=== PATIENT | male | born 1980 | race Two or more races ===

== ENCOUNTER 2025-04-16 08:44 | Outpatient (OUT) | payer OTHER, SELFPAY ==
--- OUTSIDE RECORDS SUMMARY | 2025-04-11 10:15 | XMS_ITS ---
Author Organization [facility] [place] Address [address] [place] [address] Care Team Providers Care Senior Pharmacy Technician Name Role Phone Vladislav Wells Primary Care Provider Allergies Allergen (clinical drug ingredient) Drug/Non Drug Allergy documented on EMR Reaction Allergy Type Onset Date Status Penicillin Unknown Drug Allergy Active Results Component Value Reference Range Notes UA (Urinalysis, Dipstix only - w/o micro) (Not yet reviewed by provider) Interpretation:Entered in Error Performing Lab: Notes/Report: Entered in Error COLOR yellow Yellow - Capri - CLARITY clear Clear - Clear GLUCOSE - 0 - 133 MG/DL ALBUMIN - NEG - NEG MG/DL BILIRUBIN - NEG - NEG MG/DL SPECIFIC GRAVITY 1.015 1.001 - 1.035 KETONES + NEG - NEG MG/DL BLOOD, UR - PH, UR 5 5 - 9 UROBILNOGEN - 0.2 - 1 MG/DL NITRITE - NEG - NEG ESTERASE (JOON) - NEG - NEG MG/DL Reason For Referral Diagnosis 1 Keratosis (L57.0) Referral Organization [facility] Medicine Referring Provider First Name Vladislav Referring Provider Last Name Priscilla Referring Provider Speciality Family Med richard Referred Provider Gume Sharp Referred Provider Specialty General Surg jody Referral Priority Routine REASON FOR VISIT new patient, has not seen a dr in over ten years, right shoulder pain no injury, pain has lasted over a month and getting worse, patient has concerns about a mole on the right side of his head Medications Medication SIG (Take, Route, Fr equency, Duration) Notes Start Date End Date Status Meloxicam 15 MG 1 tablet Orally Once a day for 30 days 04/11/2025 Active Social History Tobacco Use: Social History Observation Description Date Details (start date - stop date) Current Smoker 06/24/1993 - NA Tobacco Control (Standard) Question Answer Notes Tobacco use: Current smoker When did you start smoking? 06/24/1993 How often do you smoke cigarettes? Every day How many cigarettes a day do you smoke? 11-20 AUDIT-C (Standard) Question Answer Notes Did you have a drink contain ing alcohol in the past year? Yes How often did you have a dri nk containing alcohol in the past year? Never (0 point) How many drinks did you have on a typical day when you were drinking in the past year? 3 or 4 drinks (1 point) How often did you have six o r more drinks on one occasion in the past year? 2 to 3 times per week (3 points) Points 4 Interpretation Positive Problems Problem Type SNOMED Code ICD Code Onset Dates Problem Status W/U Status Risk Notes Problem Well adult (895724292) Well adult (Z00.00) Active confirmed Vital Signs Weight 182.6 lbs 04/11/2025 Height 72 in 04/11/2025 Blood pressure systolic 140 mm Hg 04/11/20 25 Blood pressure diastolic 82 mm Hg 025 BMI 24.76 kg/m2 04/11/2025 Encounters Encounter Location Date Provider Diagnosis [facility] [address] [place] [address] 04/11/2025 Vladislav Wells Well adult Z00.00 ; Keratosis L57.0 and Flank pain R10.9 Assessments Encounter Date Diagnosis (ICD Code) Assessment Notes Treatment Notes Treatment Clinical Notes Section Notes 04/11/2025 Well adult (ICD-10 - Z00.00) 04/11/2025 Keratosis (ICD-10 - L57.0) 04/11/2025 Flank pain (ICD-10 - R10.9) Plan Of Treatment Medication Medication Name Sig Start Date Stop Date Notes Meloxicam 15 MG 1 tablet Orally Once a day for 30 days Pending Test Test Name Order Date HEMOGLOBIN A1C (GLYCO) 04/11/2025 LIPID PANEL (CHOL/TRIG/HDL/LDL) 04/11/20 25 PSA, SCREENING 04/11/2025 CMP (COMP MET KHAN) w/eGFR CKD-EPI 2024 CBC WITH DIFF 04/11/2025 Referrals Referral Date Details 04/11/2025 04/11/2025, Gume Sharp Progress Notes * Jareth UMAÑA CDOB:[birth year] (44 yo M)Acc No.[id number]:04/11/2025 New Patient Patient: Jareth MENDOZA Provider: Angely Wells ([facility])MD :1980 A ge:44 Y S ex:Male Date:04/11/2025 Address:[facility] [place], [id number] Check In:01:59 PM ESTCheck O ut:02:40 PM EST Subjective: * Chief Complaints: * N ew patient, has not seen a dr in over ten years, right shoulder pain no injury, pain has lasted over a month and getting worse, patient has concerns about a mole on the right side of his head * HPI: G eneral: R shoudler pain - no injury - just woke withit - ttong wopr s-e trobuel sleeping - diff keeibgn arem flext - feels better extended - icy-hopt patches help some hx Kidney stone. D epression Screening: PHQ-9 L ittle interest or pleasure in doing things?Not at all F eeling down, depressed, or hopeless N ot at all T rouble falling or staying asleep, or sleeping too much S everal days F eeling tired or having little energy S everal days P oor appetite or overeating N ot at all F eeling bad about yourself or that you are a failure, or have let yourself or your family down N ot at all T rouble concentrating on things, such as reading the newspaper or watching television N ot at all M oving or speaking so slowly that other people could have noticed; or the opposite, being so fidgety or restless that you have been moving around a lot more than usual N ot at all T houghts that you would be better off or of hurting yourself in some way N ot at all T otal Score 2 I nterpretation M inimal Depression * ROS: E ENT: hearing changes d enies. v isual changes d enies.?non-healing mouth sores d enies. s wollen glands or neck lumps d enies. h oarseness d enies. s ore throat d enies. d ifficulty swallowing d enies. n ose bleeds d enies. n regan congestion d enies. e ar ache d enies. e ar discharge?denies. r inging in ears d enies. l ight sensitivity d enies. e ye pain d enies. b lurring d enies. e ye irritation d enies. d ouble vision d enies.?vision loss d enies. G eneral/Constitutional: Sweats: D enies. F atigue d enies. S leep problems d enies. A norexia d enies. M alaise d enies. W eight loss d enies.?Fatigue or Weakness d enies. F ever or Chills d enies. C ardiovascular: Shortness of Breath w/lying flat d enies. L ightheadedness/dizziness d enies. C hest tightness/ heavy pressure d enies. S welling of legs, ankles, or feet d enies. W aking up with shortness of breath d enies. C hest pain denies. P alpitations d enies. W eight gain d enies. R espiratory: Chronic or frequent cough d enies. C oughing up blood?denies. D ifficulty breathing d enies. P roductive cough d enies. S noring?denies. S hortness of breath that awakens from sleep (PND) d enies. C hest pain d enies. S putum production d enies. W heezing d enies. M usculoskeletal: Joint pain d enies. J oint Fluid d enies. B ack pain d enies. K nee pain d enies. N julianne pain d enies. J oint Stiffness d enies. M uscle cramps d enies. W eakness of muscles d enies. A rthritis d enies. M uscle aches d enies. P ain in shoulder(s) d enies. S wollen joints d enies. * Active Problem List Z00.00 Well adult Modified On:04/11/2025W/U Status:confirmed * Medical History: * Surgical History: l eft hand surgery to repair tendons * Hospitalization/Major Diagno stic Procedure: N o Hospitalization History. * Family History: F ather: alive, diagnosed with Unspecified heart disease. M other: alive. B rother(s): alive. S ister(s): alive. S on(s): alive. D aughter(s): alive. P aternal Grandfather: colon cancer, diagnosed with Other malignant neoplasm of unspecified site. M aternal Grandfather: diagnosed with Other malignant neoplasm of unspecified site. 3 brother(s) , 3 sister(s) . 1 son(s) , 2 daughter(s) . . * Social History: T obacco Use: T obacco Control (Standard) T obacco use: C urrent smoker W hen did you start smoking? 0 06/24/1993 H ow often do you smoke cigarettes? E very day H ow many cigarettes a day do you smoke? 1 1-20 D rug/Alcohol: A ANKIT-C (Standard) D id you have a drink containing alcohol in the past year? Y es H ow often did you have a drink containing alcohol in the past year? N ever (0 point) H ow many drinks did you have on a typical day when you were drinking in the past year? 3 or 4 drinks (1 point) H ow often did you have six or more drinks on one occasion in the past year? 2 to 3 times per week (3 points) P oints 4 I nterpretation P ositive * Medications: N one * Allergies: P enicillinno[Allergies Verified] Objective: * Vitals: W t:182.6lbs, Ht: 72 in, BP:140/82mm Hg, BMI:24.76Index, Ht-cm: 182.88 cm, Wt-k.83 kg. * Examination: P hysical Exam: GENERAL: w ell developed, well nourished, in no acute distress. HEAD: n ormocephalic/atraumatic. EYES: p upils equal, round and reactive to light, conjunctivae and sclerae normal. EARS: n o deformity or lesion of external ear, canals and TM appear normal bilaterally, TM's intact, not inflamed with normal light reflex, hearing grossly normal to conversational speech. NOSE: n o deformity, discharge, inflammation, or lesions.? MOUTH: m ucous membranes moist, normal oropharynx and posterior pharynx without lesions or exudates, tongue normal, dentition normal. NECK: n julianne supple, no masses or palpable cervical nodes, trachea midline, thyroid without nodules, masses, tenderness, or enlargement. CHEST: n o chest wall deformity, no chest wall tenderness.? LUNGS: n ormal respiratory effort and clear to auscultation, no wheezes, rales, or rhonchi, good air exchange. CARDIO: r egular rate and rhythm, normal S1 and S2, nor murmur, rub, or gallop. PULSES: n ormal capillary refill. ABDOMEN: s oft, non-distended, non-tender, no masses. MUSCULOSKELETAL: n o deformity or scoliosis noted, normal range of motion, joints normal, no erythema, edema, effusion, or ecchymosis. EXTREMITY: n o clubbing, cyanosis, edema, or deformity with normal ROM in both upper and lower bilateral extremities. NEUROLOGIC: g rossly normal. SKIN: n o rashes, ulcerations, or suspicious lesions. LYMPH NODES: n o cervical adenopathy, nodes normal. MENTAL STATUS: a lert and oriented x3, normal mood and affect. Assessment: * Assessment: 1. W ell adult - Z00.00 (Primary) 2 . K eratosis - L57.0 3 . F lank pain - R10.9 Plan: * Treatment: 2. K eratosis Referral To:Gume Sharp General Surgery Reason: 3. F lank pain L AB: UA (Urinalysis, Dipstix only - w/o micro) (Order Cancelled) (Collection Date & Time - 04/11/2025) * Labs: * L ab: UA (Urinalysis, Dipstix only - w/o micro) (Order Cancelled) (Collection Date & Time - 04/11/2025) E ntered in Error Value Reference Range C OLOR yellow Yellow - Capri - * C LARITY clear Clear - Clear * G LUCOSE - 0 - 133 MG/DL * A LBUMIN - NEG - NEG MG/DL * B ILIRUBIN - NEG - NEG MG/DL * S PECIFIC GRAVITY 1.015 1.001 - 1.035 * K ETONES + NEG - NEG MG/DL * B LOOD, UR - * P H, UR 5 5 - 9 * U ROBILNOGEN - 0.2 - 1 MG/DL * N ITRITE - NEG - NEG * E STERASE (JOON) - NEG - NEG MG/DL * Procedure Codes: 8 1002 URINALYSIS WO MICRO * * Sign off status: Completed Visit Status: C HK (Check Out) true * Provider: Angely Wells ([facility])MD Date: 04/11/2025 Generated for Printi ng/Faxing/eTransmitting on: 04/16/2025 08:51 AM EDT History and Physical Notes * HPI (History of Present Illness) Category Sub-Category Detail Notes Category Not es Depression Screening PHQ-9 Little inte rest or pleasure in doing things: Not at all Feeling down, depressed, or hopeless: No t at all Trouble falling or staying asleep, or sl eeping too much: Several days Feeling tired or having little energy: S everal days Poor appetite or overeating: Not at all Feeling bad about yourself o r that you are a failure, or have let yourself or your family down: Not at all Trouble concentrating on thi ngs, such as reading the newspaper or watching television: Not at all Moving or speaking so slowly that other people could have noticed; or the opposite, being so fidgety or restless that you have been moving around a lot more than usual: Not at all Thoughts that you would be b yemi off or of hurting yourself in some way: Not at all Total Score: 2 Interpretation: Minimal Depression General R shoudler pain - no injury - just woke withit - ttong wopr s-e trobuel sleeping - diff keeibgn arem flext - feels better extended - icy-hopt patches help some hx Kidney stone Examination Category Sub-Category Detail Notes Category Not es Physical Exam GENERAL: well developed, well nourished, in no acute distress HEAD: normocephalic/atraum atic EYES: pupils equal, round and reactive to light, conjunctivae and sclerae normal EARS: no deformity or lesi on of external ear, canals and TM appear normal bilaterally, TM's intact, not inflamed with normal light reflex, hearing grossly normal to conversational speech NOSE: no deformity, discha rge, inflammation, or lesions MOUTH: mucous membranes micky st, normal oropharynx and posterior pharynx without lesions or exudates, tongue normal, dentition normal NECK: neck supple, no mass es or palpable cervical nodes, trachea midline, thyroid without nodules, masses, tenderness, or enlargement CHEST: no chest wall deform ity, no chest wall tenderness LUNGS: normal respiratory e ffort and clear to auscultation, no wheezes, rales, or rhonchi, good air exchange CARDIO: regular rate and rhy thm, normal S1 and S2, nor murmur, rub, or gallop PULSES: normal capillary ref ill ABDOMEN: soft, non-distended, non-tender, no masses RECTAL: MUSCULOSKELETAL: no deformity or scol iosis noted, normal range of motion, joints normal, no erythema, edema, effusion, or ecchymosis EXTREMITY: no clubbing, cyanosi s, edema, or deformity with normal ROM in both upper and lower bilateral extremities NEUROLOGIC: grossly normal SKIN: no rashes, ulceratio ns, or suspicious lesions LYMPH NODES: no cervical adenopat hy, nodes normal MENTAL STATUS: alert and oriented x 3, normal mood and affect Consultation Request Notes Referral Date Referring Provider Referred Provider Que callahan 04/11/2025 Vladislav Wells Michael
--- OUTSIDE RECORDS SUMMARY | 2025-04-16 08:52 | XMS_ITS | Patient Health Record ---
Author Organization [facility] in [place] Address [address] [place] [address] Care Team Providers Care Wheel Tuner Name Role Phone Priscilla Vladislav Primary Care Provider [phone] Allergies Allergen (clinical drug ingredient) Drug/Non Drug Allergy documented on EMR Reaction Allergy Type Onset Date Status Penicillin Unknown Drug Allergy Active Reason For Referral Diagnosis 1 Keratosis (L57.0) Referral Organization [facility] Medicine Referring Provider First Name Vladislav Referring Provider Last Name Robertdelvis Referring Provider Speciality Family Med richard Referred Provider Gume Sharp Referred Provider Specialty General Surg jody Referral Priority Routine Medications Medication SIG (Take, Route, Fr equency, [...] W/U Status Risk Notes Problem Well adult (654993007) Well adult (Z00.00) Active confirmed Vital Signs Blood pressure diastolic 82 mm Hg 04/11/2025 Height 72 in 04/11/2025 Blood pressure systolic 140 mm Hg 04/11/2025 Weight 182.6 lbs 04/11/2025 BMI 24.76 kg/m2 04/11/2025 Encounters Encounter Location Date Provider Diagnosis [facility] [address] [place] [address] 04/11/2025 Vladislav Wells Well adult Z00.00 ; Keratosis L57.0 and Flank pain R10.9 Assessments Encounter Date Diagnosis (ICD Code) Assessment Notes Treatment Notes Treatment Clinical Notes Section Notes 04/11/2025 Well adult (ICD-10 - Z00.00) 04/11/2025 Keratosis (ICD-10 - L57.0) 04/11/2025 Flank pain (ICD-10 - R10.9) Plan Of Treatment Pending Test Test Name Order Date HEMOGLOBIN A1C (GLYCO) 04/11/2025 LIPID PANEL (CHOL/TRIG/HDL/LDL) 04/11/20 25 PSA, SCREENING 04/11/2025 CMP (COMP MET KHAN) w/eGFR CKD-EPI 2024 CBC WITH DIFF 04/11/2025 Insurance Providers Payer Name Payer Address Payer Phone Subscriber Number Group Number Insured Name Patient Relationship to Insured Coverage Start Date Coverage End Date [employer]LENA DREW [address] [place] [phone] [id number] Ashly Monae Spouse - patient is the spouse of the insured Medical (General) History Surgical History Surgery Date(Month/Year) left hand surgery to repair tendons
[2025-04-16 09:20] LABS: Hematocrit 48.8 % (42.0-54.0); Hemoglobin 16.4 g/dL (14.0-18.0); Immature Granulocytes Abs Auto 0.03 10^3/uL (0.00-0.03); Immature Granulocytes Pct Auto 0.4 % (0.0-0.5); Lymphocytes Absolute Auto 2.9 10^3/uL (1.2-3.8); Mean Corpuscular HGB Conc 33.6 g/dL (29.9-35.2); Mean Corpuscular Hemoglobin 32.5 pg (25.9-34.0); Mean Corpuscular Volume 96.6 fL (80.0-94.0); Platelet Count 217 10^3/uL (150-450); Red Blood Count 5.05 10^6/uL (4.70-6.10); White Blood Count 7.8 10^3/uL (4.0-11.0)
[2025-04-16 09:48] LABS: Alanine Aminotransferase 62 U/L (16-63); Albumin Globulin Ratio 0.9; Albumin Level 3.8 g/dL (3.4-5.0); Alkaline Phosphatase 101 U/L (46-116); Anion Gap 12.8; Aspartate Amino Transferase 39 U/L (15-37); Blood Urea Nitrogen 10.0 mg/dL (7.0-18.0); Calcium 9.4 mg/dL (8.5-10.1); Carbon Dioxide 28.5 mmol/L (21.0-32.0); Chloride 104 mmol/L (98-107); Cholesterol 284 mg/dL (<=200); Estimated GFR (African America >60 (>=60 mL/min/1.73m^2); Estimated GFR (Non-African Ame >60 (>=60 mL/min/1.73m^2); Globulin 4.2 g/dL; Glucose 107 mg/dL (74-106); HDL Cholesterol 51 mg/dL (40-60); Potassium 4.3 mmol/L (3.5-5.1); Sodium 141 mmol/L (136-145); Total Protein 8.0 g/dL (6.4-8.2); Triglycerides 159 mg/dL (<=150); VLDL CHOLESTEROL 31.8 mg/dL
== END 2025-04-16 08:45 | disposition home or self-care (01) ==
LOC: LAB 08:49
PROVIDERS: PCP Family Medicine; Visit Provider Family Medicine
DX: Z00.00 Encounter for general adult medical examination without abnormal findings (principal)
CPT/HCPCS: 36415; 80053; 80061; 83036; 85025; G0103

== ENCOUNTER 2025-04-23 15:01 | Outpatient (OUT) | payer OTHER, SELFPAY ==
--- NOTE | 2025-04-23 15:12 | XR_ITS ---
[address] [address] Patient Name: ANIYAH UMAÑA MRN: [id number] date: 1980 Sex: M Assigned Patient Location: RAD Current Patient Location: [facility] Accession/Order Number: [id number] Exam Date: 04/23/2025 15:45 Report Date: 04/23/2025 15:45 At the request of: HUSAM HUITRON MD Procedure: XR shoulder RT min 2V RIGHT SHOULDER - - 3 views CLINICAL HISTORY: Shoulder impingement, M75.40 COMPARISON: None FINDINGS: Joint spaces appear maintained. No acute bony process. XR/XR shoulder RT min 2V IMPRESSION: No acute bony process. Impression dictated by: Marco Weiss Jr., DEliOEli 04/23/2025 3:45 PM Dictation Location: [place] [address] Electronically authenticated by: [id number] Date: 04/23/2025 15:45
== END 2025-04-23 15:02 | disposition home or self-care (01) ==
LOC: RAD 15:02
PROVIDERS: PCP Family Medicine; Visit Provider Family Medicine
DX: M75.41 Impingement syndrome of right shoulder (principal)
CPT/HCPCS: 73030

== ENCOUNTER 2025-07-01 08:30 | Outpatient (OUT) | payer OTHER, SELFPAY | END 2025-07-01 08:31 | disposition home or self-care (01) | LOC: PST 08:31 | PROVIDERS: PCP Family Medicine; Visit Provider Surgery | DX: Z01.818 Encounter for other preprocedural examination (principal); D48.5 Neoplasm of uncertain behavior of skin ==

== ENCOUNTER 2025-09-10 10:07 | Emergency (ER) | payer OTHER, SELFPAY ==
[2025-09-10] VITALS (16 sets, daily range): BP systolic 130–159; BP diastolic 83–104; PULSE 70–82; O2SAT 97–100; BMI 25.1
--- NOTE | 2025-09-10 10:22 | ED.GENADUL1 ---
HPI HPI - General Adult General Chief complaint: Chest Pain Stated complaint: CHEST PAIN BACK PAIN Time Seen by Provider: 09/10/25 10:22 Source: patient Mode of arrival: walk-in History of Present Illness HPI narrative: The patient is a 45-year-old male who presents to the emergency department with right sided chest pain and short of breath. The patient describes it as being short of breath because it hurts to take deep breath. He states that he is a smoker. Symptoms started 2 days ago. Pain is severe. Breathing deep and moving makes it worse. Nothing makes it better. He has not taken anything for pain prior to arrival. No fever or chills. No sick contacts or recent travel. Related Data Previous Rx's ?Medication ?Instructions ?Recorded hydrocodone 5 mg-acetaminophen 325 1 tab PO Q4H PRN pain #18 tabs 09/10/25 mg tablet ibuprofen 600 mg tablet 600 mg PO Q8H PRN fever or pain 09/10/25 #20 tabs prednisone 10 mg tablet See Rx Instructions .Route 09/10/25 .COMPLEX #30 tabs Allergies Allergy/AdvReac Type Severity Reaction Status Date / Time Penicillins Allergy Unknown Unknown Verified 06/27/25 09:55 Opioid HPI Opioid Management Most Recent Opioid Data: Last Pain Scale 6 Today, 12:06 Last MAR Pain Assessment Today, 12:06 Review of Systems ROS Status of ROS 10 or more systems reviewed and unremarkable except as noted in history and below PFSH PFSH Medical History Hip pain ?M25.559 - Pain in unspecified hip (ICD-10) Shoulder pain ?M25.519 - Pain in unspecified shoulder (ICD-10) Heartburn ?R12 - Heartburn (ICD-10) High cholesterol ?E78.00 - Pure hypercholesterolemia, unspecified (ICD-10) Hypertension ?I10 - Essential (primary) hypertension (ICD-10) Hyperlipidemia ?E78.5 - Hyperlipidemia, unspecified (ICD-10) Nephrolithiasis ?N20.0 - Calculus of kidney (ICD-10) Skin lesion ?L98.9 - Disorder of the skin and subcutaneous tissue, unspecified (ICD-10) Surgical History History of myringotomy ?Z98.890 - Other specified postprocedural states (ICD-10) Repair of tendon of hand performed ?Z98.890 - Other specified postprocedural states (ICD-10) Family History Other Colon cancer Family history of diabetes mellitus Heart disease Social History Within the past year, how often did you have a drink containing alcohol: 2-3 times a week Smoking status: Current every day smoker What tobacco products do you use: cigarettes Packs per day: 1 Years smoked: 34 Smoking pack-years: 34.00 Non-prescribed substance use: cannabis (any form) Previous occupational history: [employer] Highest level of school completed/degree received: high school graduate Little interest or pleasure in doing things: not at all Feeling down, depressed, or hopeless: not at all Exam Narrative Exam Narrative: Prior to examining the patient, I have washed with hospital approved and provided Antiseptic Hand Band Tacker and have also applied gloves.? Prior to touching the patient, I asked for consent to examine the patient.? General: Alert and oriented, well nourished, mild distress. Eye: PERRL, EOMI, normal conjunctiva. HENT: Normocephalic, normal hearing, moist oral mucosa, no scleral icterus Neck: Supple, non-tender, no carotid bruits, no JVD, no lymphadenopathy. Lungs: Clear to auscultation and percussion, non-labored respiration. No rhonchi, rales, wheezing. The patient is splinting his right chest wall to breathe. Heart: Normal rate, regular rhythm, no murmur, gallop or edema. Musculoskeletal: Normal range of motion and strength, no swelling. The patient does have reproducible chest pain to the anterior chest wall. Skin: Skin is warm, dry and pink, no rashes or lesions. Neurologic: Awake, alert, and oriented X3, CN II-XII intact. Psychiatric: Cooperative, appropriate mood and affect.? Following the conclusion of the examination, I have washed my hands thoroughly after removing examination gloves. Constitutional Vital Signs, click to edit/add: Last Vital Signs Pulse 70 09/10/25 11:50 Resp 17 09/10/25 11:50 BP 143/94 H 09/10/25 12:00 Pulse Ox 98 09/10/25 11:50 O2 Del Method Room Air 09/10/25 10:25 Course Course Hospital Course: In summary the patient is a 45-year-old male presenting to the emergency department with the complaint of chest pain. Patient has no known coronary artery disease risk factors. Patient does smoke. He denies any history of coronary artery disease, hypertension, dyslipidemia or diabetes mellitus. Reevaluation(s) Reevaluation #1: Explained to the patient the results of all of his testing. The pain still is fairly severe for the patient. I did inform him that I provided the treatment for pleurisy however I would give him some pain medications to help temporize his pain. I did stress it is essential that he takes his steroids and the anti-inflammatory to get at the root etiology of the pleurisy and I have advised him not to smoke. This was probably precipitated either by a virus or tobacco abuse. Time: 12:06 Vital Signs Vital signs: Vital Signs Pulse Rate 75 09/10/25 10:11 Respiratory Rate 18 09/10/25 10:11 Blood Pressure 156/93 H 09/10/25 10:11 Pulse Oximetry 99 09/10/25 10:11 Oxygen Delivery Method Room Air 09/10/25 10:11 Pulse Rate 70 09/10/25 11:50 Respiratory Rate 17 09/10/25 11:50 Blood Pressure 143/94 H 09/10/25 12:00 Pulse Oximetry 98 09/10/25 11:50 Oxygen Delivery Method Room Air 09/10/25 10:25 Medical Decision Making [facility] Narrative Medical decision making narrative: In summary, the patient is a pleasant 45-year-old male presenting to the emergency department right-sided chest pain that is reproducible with inspiration as well as palpation. Patient is a positive smoker. He denies any recent fever or chills. Chest x-ray reveals no evidence of pneumothorax or pneumonia. Patient does not have any evidence of a PE or myocardial infarction based on EKG and laboratory work. The patient's pleurisy is the most likely diagnosis after ruling out other more dangerous etiologies. Patient was given methylprednisolone and Toradol in the emergency department and then finally morphine for analgesic management. We will give the patient a prescription for medication for home. If symptoms worsen or change he needs to return to the ER soon as possible for further evaluation and treatment. Differential Diagnosis Differential Diagnosis: Pleurisy, PE, myocardial infarction, costochondritis, pneumothorax Medical Records Medical records reviewed: Yes I reviewed the patient's medical records Lab Data Lab results reviewed: Yes I reviewed the patient's lab results Lab results narrative: CBC reveals no evidence of anemia or leukocytosis. Basic metabolic panel revealed no electrolyte, kidney, or liver dysfunction. Troponin was negative. I would expect that if they patient has had pain for 2 days that the troponin would be elevated by now that is why a second 1 was not ordered. D-dimer is negative. And in the absence of risk factors the patient does not likely have a pulmonary embolism. Labs: Lab Results 09/10/25 Range/Units 11:22 WBC 8.3 (4.0-11.0) 10^3/uL RBC 4.92 (4.70-6.10) 10^6/uL Hgb 16.4 (14.0-18.0) g/dL Hct 48.5 (42.0-54.0) % MCV 98.6 H (80.0-94.0) fL MCH 33.3 (25.9-34.0) pg MCHC 33.8 (29.9-35.2) g/dL RDW 12.8 (11.0-15.0) % Plt Count 197 (150-450) 10^3/uL MPV 11.3 (9.5-13.5) fL Neut % (Auto) 62.7 (43.0-75.0) % Lymph % (Auto) 27.7 (20.5-60.0) % Dickson % (Auto) 7.7 (1.7-12.0) % Eos % (Auto) 1.1 (0.9-7.0) % Baso % (Auto) 0.6 (0.2-2.0) % Neut # (Auto) 5.2 (1.4-6.5) 10^3/uL Lymph # (Auto) 2.3 (1.2-3.8) 10^3/uL Dickson # (Auto) 0.6 (0.3-0.8) 10^3/uL Eos # (Auto) 0.1 (0.0-0.7) 10^3/uL Baso # (Auto) 0.1 (0.0-0.1) 10^3/uL Abs Immat Gran (auto) 0.02 (0.00-0.03) 10^3/uL Imm/Tot Granulo (auto) 0.2 (0.0-0.5) % D-Dimer <0.19 (<=0.59) mg/L FEU Sodium 140 (136-145) mmol/L Potassium 4.2 (3.5-5.1) mmol/L Chloride 104 (98-107) mmol/L Carbon Dioxide 30.7 (21.0-32.0) mmol/L Anion Gap 9.5 BUN 5.0 L (7.0-18.0) mg/dL Creatinine 0.89 (0.70-1.30) mg/dL Est GFR ( Amer) >60 (>=60 mL/min/1.73m^2) Est GFR (Non-Af Amer) >60 (>=60 mL/min/1.73m^2) BUN/Creatinine Ratio 5.6 Glucose 104 (74-106) mg/dL Calcium 9.8 (8.5-10.1) mg/dL Troponin I High Sens 4.5 (4.0-76.1) pg/mL Imaging Data Chest x-ray: Attestation: I have reviewed the pertinent imaging results. Radiologist's impression: ITS Impressions Chest X-Ray 09/10/25 11:11 IMPRESSION: NO ACUTE CARDIOPULMONARY ABNORMALITY. Impression dictated by: Yadira Nails M.D. 09/10/2025 11:54 AM Dictation Location: [place] [address] Electronically authenticated by: [id number] Y Date: 09/10/2025 11:54 ECG Data Attestation: I personally reviewed and interpreted this ECG as follows: Interpretation: Twelve-lead EKG reveals a sinus rhythm with a ventricular of 75 bpm. The SD interval and QRS duration within normal limits. QTc is not prolonged. [place] is normal. No evidence of ST segment elevation or depression suggestive of infarction or ischemia. Discharge Plan Discharge Chief Complaint: Chest Pain Clinical Impression: Pleurisy Patient Disposition: Home, Self-Care Time of Disposition Decision: 12:09 Condition: Good Mode of Transportation: Private Vehicle Prescriptions / Home Meds: New prednisone 10 mg tablet See Rx Instructions .ROUTE .COMPLEX Qty: 30 0RF Rx Instructions: 4 tabs x 3 days then 3 tabs x 3 days then 2 tabs x 3 days then 1 tab x 3 days hydrocodone-acetaminophen 5-325 mg tablet 1 tab PO Q4H PRN (Reason: pain) Qty: 18 0RF ibuprofen 600 mg tablet 600 mg PO Q8H PRN (Reason: fever or pain) Qty: 20 0RF Print Language: [place] Referrals: Chris Wells MD [Primary Care Provider, Family Practice] - 1 week
--- NOTE | 2025-09-10 11:11 | XR_ITS ---
The [address] [address] Patient Name: ANIYAH UMAÑA MRN: [id number] date: 1980 Sex: M Assigned Patient Location: ER Current Patient Location: ER Accession/Order Number: [id number] Exam Date: 09/10/2025 11:40 Report Date: 09/10/2025 11:54 At the request of: SAI PATTEN DO Procedure: XR chest 2V PA AND LATERAL CHEST: CLINICAL HISTORY: Right-sided chest pain radiating to the arm and back. Shortness of breath. Tobacco use. COMPARISON: None There is mild hyperinflation. There is no focal parenchymal consolidation, effusion or pneumothorax. The cardiac, hilar and mediastinal silhouettes are within normal limits. There is no vascular congestion. The visualized bony thorax is intact. There is subtle dextroscoliotic curvature. XR/XR chest 2V IMPRESSION: NO ACUTE CARDIOPULMONARY ABNORMALITY. Impression dictated by: Yadira Nails M.D. 09/10/2025 11:54 AM Dictation Location: [place] Electronically authenticated by: [id number] Y Date: 09/10/2025 11:54
--- NOTE | 2025-09-10 11:13 | ECG_ITS ---
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 Measurements Intervals [place] Rate: 75 P: -9 FL: 150 QRS: 14 QRSD: 98 T: -3 QT: 378 QTc: 406 Interpretive Statements 1100 Sinus rhythm 9110 normal ECG No previous ECG available for comparison Electronically Signed On 09-10-2025 20:55:28 EST by AWA NOLASCO M.D.
[2025-09-10] MEDS: KETOROLAC TROMETHAMINE 30 MG/ML VIAL 15 MG IVP (11:24)
[2025-09-10] MEDS: METHYLPREDNISOLONE SOD SUCC PF 125 MG/2 ML VIAL IVP (11:25)
[2025-09-10 11:32] LABS: Hematocrit 48.5 % (42.0-54.0); Hemoglobin 16.4 g/dL (14.0-18.0); Immature Granulocytes Abs Auto 0.02 10^3/uL (0.00-0.03); Immature Granulocytes Pct Auto 0.2 % (0.0-0.5); Lymphocytes Absolute Auto 2.3 10^3/uL (1.2-3.8); Mean Corpuscular HGB Conc 33.8 g/dL (29.9-35.2); Mean Corpuscular Hemoglobin 33.3 pg (25.9-34.0); Mean Corpuscular Volume 98.6 fL (80.0-94.0); Platelet Count 197 10^3/uL (150-450); Red Blood Count 4.92 10^6/uL (4.70-6.10); White Blood Count 8.3 10^3/uL (4.0-11.0)
[2025-09-10 11:55] LABS: Anion Gap 9.5; Blood Urea Nitrogen 5.0 mg/dL (7.0-18.0); Calcium 9.8 mg/dL (8.5-10.1); Carbon Dioxide 30.7 mmol/L (21.0-32.0); Chloride 104 mmol/L (98-107); Estimated GFR (African America >60 (>=60 mL/min/1.73m^2); Estimated GFR (Non-African Ame >60 (>=60 mL/min/1.73m^2); Glucose 104 mg/dL (74-106); Potassium 4.2 mmol/L (3.5-5.1); Sodium 140 mmol/L (136-145)
[2025-09-10] MEDS: MORPHINE SULFATE 4 MG/ML VIAL IV (12:06)
== END 2025-09-10 12:34 | disposition home or self-care (01) ==
PROVIDERS: Emergency Provider Emergency Medicine; PCP Family Medicine
DX: R09.1 Pleurisy (principal); F17.210 Nicotine dependence, cigarettes, uncomplicated
CPT/HCPCS: 36415; 71046; 80048; 84484; 85025; 85378; 93005; 96374; 96375; 99284; J1885; J2270; J2919